=== PATIENT | male | born 1955 | race Caucasian/White ===

== ENCOUNTER 2018-06-12 15:15 | Emergency (ER) | payer OTHER ==
[~2018-06-12] VITALS: Ht 172.7 cm; Wt 73.9 kg
[2018-06-12 15:15] VITALS: BP_SYST 170
--- NOTE | 2018-06-12 15:16 | NUR ---
Arrived BLS ambulance. Patient to ER bed 3 to gown for evaluation. Side rails up. Report given to Bharath HUSAIN.
--- NOTE | 2018-06-12 15:20 | NUR ---
ER at bedside examining patient.
--- NOTE | 2018-06-12 15:24 | NUR ---
Patient is awake, alert, and oriented x4. Patient had basal carcinoma removal last week from left ear, he coughed and it ruptured. He presents to the ER with a bandage around his head that is visibly bleeding.
[2018-06-12] MEDS ORDERED: LORazepam 1 MG TABLET PO ONE ×2 (15:45→18:30)
[2018-06-12] MEDS ORDERED: cloNIDine HCL 0.1 MG TABLET PO ONE ×3 (15:45→18:15)
[2018-06-12 19:12] VITALS: BP_SYST 147
--- NOTE | 2018-06-12 19:12 | NUR ---
Patient given written and verbal discharge instructions and verbalizes understanding. ER MD discussed with patient the results and treatment provided. Patient in stable condition. ID arm band removed. No Rx given. Patient educated on pain management and to follow up with PMD. Pain Scale 0/10. Opportunity for questions provided and answered.
== END 2018-06-12 19:12 | disposition home or self-care (01) ==
LOC: SED 15:15
DX: H95.42 Postprocedural hemorrhage of ear and mastoid process following other procedure (principal); I16.0 Hypertensive urgency
CPT/HCPCS: 99284